=== PATIENT | male | born 1955 | race Hispanic/Latino ===

== ENCOUNTER → 2017-04-02 | Outpatient (CLI) | payer BC ==
[~2017-04-02] MED LIST: GADOBENATE DIMEGLUMINE 1 ML IV ONE; IOPAMIDOL 300 MG/ML 15ML VIAL IT ONE
--- NOTE | 2017-04-02 11:28 | Diagnostic Imaging Report ---
PROCEDURE:INJECTION ARTHROGRAM SHOULDER COMPARISON:None. INDICATIONS:TORN LABRUM IN SHOULDER FINDINGS:Tray Service Worker images of the right shoulder were obtained. The right shoulder was prepped and draped in the usual sterile fashion. 1% lidocaine was infused into the subcutaneous tissues for local anesthesia. Utilizing fluoroscopic guidance, a 21 gauge needle was advanced into the right glenohumeral joint. 5 cc of Isovue 300 and perfused. Opacification of the joint space confirmed intra-articular position. A mixture of 10 cc sterile saline with 0.1 cc gadavist was infused. After completion, the needle was removed. The contrast was mobilized within the joint space with passive range of motion. A sterile dressing was applied. There were no immediate complications. The patient tolerated the procedure well. The patient was transferred in stable unchanged condition to the MR suite for further imaging. CONCLUSION: Successful fluoroscopically guided contrast infusion into the right glenohumeral joint for an MR arthrogram. Dictated by: Sebas Bowser M.D. on 04/02/2017 at 11:37 Electronically approved by: Sebas Bowser M.D. on 04/02/2017 at 11:37
--- NOTE | 2017-04-02 11:28 | Diagnostic Imaging Report ---
PROCEDURE:INJECTION ARTHROGRAM SHOULDER COMPARISON:None. INDICATIONS:TORN LABRUM IN SHOULDER FINDINGS:Plumbing Instructor images of the right shoulder were obtained. The right shoulder was prepped and draped in the usual sterile fashion. 1% lidocaine was infused into the subcutaneous tissues for local anesthesia. Utilizing fluoroscopic guidance, a 21 gauge needle was advanced into the right glenohumeral joint. 5 cc of Isovue 300 and perfused. Opacification of the joint space confirmed intra-articular position. A mixture of 10 cc sterile saline with 0.1 cc gadavist was infused. After completion, the needle was removed. The contrast was mobilized within the joint space with passive range of motion. A sterile dressing was applied. There were no immediate complications. The patient tolerated the procedure well. The patient was transferred in stable unchanged condition to the MR suite for further imaging. CONCLUSION: Successful fluoroscopically guided contrast infusion into the right glenohumeral joint for an MR arthrogram. Dictated by: Sebas Bowser M.D. on 04/02/2017 at 11:37 Electronically approved by: Sebas Bowser M.D. on 04/02/2017 at 11:37
--- NOTE | 2017-04-05 08:38 | Diagnostic Imaging Report ---
TECHNIQUE: Magnetic resonance imaging of the RIGHT SHOULDER was performed after intra-articular injected contrast. COMPARISON: None available. HISTORY: Pain FINDINGS: MUSCLES AND TENDONS: Rotator Cuff: Tendons: Full-thickness tear of the supraspinatus tendon measuring approximately 2 cm in AP dimension with retraction of the deep fibers up to 3 cm and superficial fibers 1.5 cm (coronal image 11). The tear propagates posteriorly as a partial thickness articular sided tear into the infraspinatus tendon. Muscles: No focal muscle atrophy. Biceps Tendon: The long head of the biceps tendon is intact and within the intertubercular groove. GLENOHUMERAL JOINT: Glenoid Labrum: Nondetached tearing of the superior and posterior labrum. Articular Cartilage: Cartilage thinning without focal defect. AC JOINT AND ACROMION: Mild hypertrophic degenerative changes of the acromioclavicular joint. Subacromial spurring. BONE: No acute fracture. SOFT TISSUES: Otherwise, the soft tissues appear unremarkable. IMPRESSION: Full-thickness tear of the supraspinatus tendon with posterior propagation as a partial-thickness articular sided tear into the infraspinatus. Retraction as above without atrophy. Subacromial spur. Nondetached superior and posterior labral tearing. Signed by: Dr. Kei Laughlin M.D. on 04/05/2017 8:34 AM
== END ==
LOC: DX 08:30
PROVIDERS: ATTEND Specialist
DX: S43.431A Superior glenoid labrum lesion of right shoulder, initial encounter (principal)
CPT/HCPCS: 23350; 73222; 77002; Q9967

== ENCOUNTER → 2017-07-07 | Day surgery (SDC) | payer BC ==
[~2017-07-07] MED LIST changes: +ACETAMINOPHEN 1000 MG/100 ML IV ONE; +CEFAZOLIN SOD 2 GM/D5W 50ML 50 ML IV ONE; +DEXAMETHASONE SOD PHOS INJ 4 MG/ML VIAL ONE; +EPHEDRINE SULFATE INJ 50 MG/10 ML SYR ONE; +FENTANYL CITRATE/PF 100MCG/2 ML INJ ONE; -GADOBENATE DIMEGLUMINE 1 ML IV ONE; -IOPAMIDOL 300 MG/ML 15ML VIAL IT ONE; +KETOROLAC TROMETHAMINE 30 MG/ML VIAL ONE; +LIDOCAINE 2%/ EPINEPHRINE 20ML MDV ONE; +LIDOCAINE HCL 2% LOCAL INJ 5 ML SDV VIAL INJ ONE; +MIDAZOLAM HCL 2 MG/2 ML VIAL ONE; +ONDANSETRON HCL INJ 2 MG/ML VIAL ONE; +PROPOFOL IV EMULSION 10 MG/ML 20 ML VIAL ONE; +ROCURONIUM BROMIDE 10 MG/ML 5ML VIAL ONE; +ROPIVACAINE 0.5% 5 MG/ML 30 ML SDV ONE; +SEVOFLURANE INHAL SOLN 250 ML PEN BTL ONE
--- OUTSIDE RECORDS SUMMARY | 2017-07-07 07:45 | XMS REPORT ---
Author Author [facility] Address Unknown Phone Unavailable Care Team Providers Care Wet Room Worker Name Role Phone NEHEMIAS ZHANG Unavailable Unavailable Problems This patient has no known problems. Allergies, Adverse Reactions, Alerts This patient has no known allergies or adverse reactions. Medications This patient has no known medications. Results Test Description Test Time Test Comments Text Results Atomic Results Result Comments FLURO GUIDE NEEDLE PLMT/LOC DE [place] [address] Patient Name: GURVINDER HUIZAR MR #: [id number] : 1955 Age/Sex: 61/M Req #: [id number] Adm Physician: Ordered by: NEHEMIAS ZHANG MD Report #: [id number] Location: DX Room/Bed: Procedure: [id number] DX/FLURO GUIDE NEEDLE PLMT/LOC DE Exam Date: Exam Time: REPORT STATUS: Signed PROCEDURE: INJECTION ARTHROGRAM SHOULDER COMPARISON: None. INDICATIONS: TORN LABRUM IN SHOULDER FINDINGS: Monitoring Specialist images of the right shoulder were obtained. The right shoulder was prepped and draped in the usual sterile fashion. 1% lidocaine was infused into the subcutaneous tissues for local anesthesia. Utilizing fluoroscopic guidance, a 21 gauge needle was advanced into the right glenohumeral joint. 5 cc of Isovue 300 and perfused. Opacification of the joint space confirmed intra-articular position. A mixture of 10 cc sterile saline with 0.1 cc gadavist was infused. After completion, the needle was removed. The contrast was mobilized within the joint space with passive range of motion. A sterile dressing was applied. There were no immediate complications. The patient tolerated the procedure well. The patient was transferred in stable unchanged condition to the MR suite for further imaging. CONCLUSION: Successful fluoroscopically guided contrast infusion into the right glenohumeral joint for an MR arthrogram. Dictated by: Lakhwinder García M.D. on 04/02/2017 at 11: 37 Electronically approved by: Lakhwinder García M.D. on 04/02/2017 at 11:37 Dictated By: LAKHWINDER GARCÍA MD [id number] Transcribed By: RONAL on 04/02/17 113 COPY TO : NEHEMIAS ZHANG MD INJECTION ARTHROGRAM SHOULDER [place] [address] Patient Name: GURVINDER HUIZAR MR #: [id number] : 1955 Age/Sex: 61/M Req #: [id number] Adm Physician: Ordered by: NEHEMIAS ZHANG MD Report #: [id number] Location: DX Room/Bed: Procedure: [id number] IR/INJECTION ARTHROGRAM SHOULDER Exam Date: 04/02/17 Exam Time: 0900 REPORT STATUS: Signed PROCEDURE : INJECTION ARTHROGRAM SHOULDER COMPARISON: None. INDICATIONS: TORN LABRUM IN SHOULDER FINDINGS: Monitoring Specialist images of the right shoulder were obtained. The right shoulder was prepped and draped in the usual sterile fashion. 1% lidocaine was infused into the subcutaneous tissues for local anesthesia. Utilizing fluoroscopic guidance, a 21 gauge needle was advanced into the right glenohumeral joint. 5 cc of Isovue 300 and perfused. Opacification of the joint space confirmed intra-articular position. A mixture of 10 cc sterile saline with 0.1 cc gadavist was infused. After completion, the needle was removed. The contrast was mobilized within the joint space with passive range of motion. A sterile dressing was applied. There were no immediate complications. The patient tolerated the procedure well. The patient was transferred in stable unchanged condition to the MR suite for further imaging. CONCLUSION: Successful fluoroscopically guided contrast infusion into the right glenohumeral joint for an MR arthrogram. Dictated by: Lakhwinder García M.D. on 04/02/2017 at 11: 37 Electronically approved by: Lakhwinder García M.D. on 04/02/2017 at 11:37 Dictated By: LAKHWINDER GARCÍA MD Transcribed By: RONAL on 04/02/171136 COPY TO : NEHEMIAS ZHANG MD MRI SHOULDER RIGHT W [place] [address] Patient Name: GURVINDER HUIZAR MR #: [id number] : 1955 Age/Sex: 61/M Req # : [id number] [facility] Physician: Ordered by: NEHEMIAS ZHANG MD Report #: [id number] Location: DX Room/Bed: Procedure: [id number] MRI/MRI SHOULDER RIGHT W Exam Date: Exam Time : REPORT STATUS: Signed TECHNIQUE: Magnetic resonance imaging of the RIGHT SHOULDER was performed after intra-articular injected contrast. COMPARISON: None available. HISTORY: Pain FINDINGS: MUSCLES AND TENDONS: Rotator Cuff: Tendons: Full-thickness tear of the supraspinatus tendon measuring approximately 2 cm in AP dimension with retraction of the deep fibers up to 3 cm and superficial fibers 1.5 cm ( coronal image 11). The tear propagates posteriorly as a partial thickness articular sided tear into the infraspinatus tendon. Muscles: No focal muscle atrophy. Biceps Tendon: The long head of the biceps tendon is intact and within the intertubercular groove. GLENOHUMERAL JOINT: Glenoid Labrum: Nondetached tearing of the superior and posterior labrum. Articular Cartilage: Cartilage thinning without focal defect. AC JOINT AND ACROMION: Mild hypertrophic degenerative changes of the acromioclavicular joint. Subacromial spurring. BONE: No acute fracture. SOFT TISSUES: Otherwise, the soft tissues appear unremarkable. IMPRESSION: Full-thickness tear of the supraspinatus tendon with posterior propagation as a partial-thickness articular sided tear into the infraspinatus. Retraction as above without atrophy. Subacromial spur. Nondetached superior and posterior labral tearing. Signed by: Dr. Juan M Chan M.D. on 04/05/2017 8:34 AM Dictated By: JUAN M CHAN MD 3 Transcribed By: MAX on 04/05/17833 COPY TO: NEHEMIAS ZHANG MD
--- NOTE | 2017-07-08 06:15 | Operative Report ---
DATE OF PROCEDURE: July 07, 2017 PREOPERATIVE DIAGNOSES 1. Right shoulder rotator cuff tear. 2. Right shoulder labral tear. 3. Right shoulder acromioclavicular joint arthritis. POSTOPERATIVE DIAGNOSES 1. Right shoulder rotator cuff tear. 2. Right shoulder synovitis. 3. Right shoulder labral tear. 4. Right shoulder acromioclavicular joint arthritis. OPERATIONS/PROCEDURES PERFORMED 1. The patient underwent a right shoulder examination under anesthesia. 2. Right shoulder arthroscopy. 3. Right shoulder arthroscopic debridement of synovitis. 4. Right shoulder arthroscopic biceps tenodesis. 5. Right shoulder arthroscopic rotator cuff reconstruction. 6. Right shoulder arthroscopic subacromial decompression and acromioplasty. 7. Right shoulder arthroscopic distal clavicle resection. CABLE STRETCHER AND TESTER: Bronwyn Gan PA-C. ANESTHESIA: General endotracheal intubation anesthesia, as well as a regional block. IV FLUIDS: Per the anesthesia record. COMPLICATIONS: None. BRIEF DESCRIPTION OF THE PATIENT'S OPERATIVE PROCEDURE: Mr. Bowser was taken to the operating room and placed in the supine position on the operating room table. Following induction of general anesthesia, the patient's chair was converted to a beach chair type position. Examination of the right shoulder demonstrated full passive range of motion of the shoulder joint. There was no evidence of instability. Standard posterolateral and anterior portals were created without difficulty. The scope was placed within the shoulder joint atraumatically. Examination of the glenohumeral articulation demonstrated no significant evidence of chondromalacia. There was, however, evidence of diffuse synovitis in the shoulder joint. There were no loose bodies in the shoulder. A probe was placed in the shoulder, and the patient was found to have an anterior labral injury. There was also evidence of a partial biceps tendon injury. The patient additionally had a large full-thickness rotator cuff tear. A shaver was placed in the shoulder joint and synovitis was debrided. The biceps tendon was also debrided at this time. The insertion site for the rotator cuff was also debrided to a bleeding bony bed. The articular surface of the rotator interval was debrided. FiberWire suture was shuttled through the rotator interval capturing the biceps tendon. The biceps tendon was then released from its attachment to the glenoid. The position was checked arthroscopically and found to be appropriate. The shoulder was then deflated of its sterile normal saline. The scope was then placed in the subacromial space. Examination of the subacromial space demonstrated significant bursal inflammation. The patient also had a markedly downward sloping acromion both laterally and anteriorly. The shaver was used to resect the bursa. Care was taken to protect the biceps tenodesis sutures at this time. The shaver was then used to further debride the rotator cuff insertion site. Two double loaded suture anchors were then inserted into the greater tuberosity of the humerus, and the suture arms from those anchors were then woven through the rotator cuff tissue. The rotator cuff tissue was then advanced into its normal insertion site and tied firmly. This resulted in complete reapproximation of the patient's rotator cuff injury. The shaver was then placed in the shoulder and an acromioplasty was performed. The shoulder was placed through a range of motion and found to not impinge on the overlying acromion. The shaver was then transferred to the anterior portal. The acromioclavicular joint was isolated. A 1-cm section of the acromion was resected using a shaver. The scope was then placed in the anterior portal and this confirmed appropriate and complete resection of the distal clavicle. The shoulder was then deflated of its sterile normal saline. All portal sites were closed. Sterile dressings were applied. The patient was provided a shoulder immobilizer, awakened and taken to the postanesthesia care unit in stable condition. Bronwyn Gan acted as assistant printer floor covering for this case, and was necessary for both prepping and draping the patient, as well as positioning the arm and the passage of sutures that allowed this case to be successful. Job#: [id number] [place]
== END | disposition home or self-care (01) ==
LOC: OR 07:43
PROVIDERS: ATTEND Specialist
DX: S46.011A Strain of muscle(s) and tendon(s) of the rotator cuff of right shoulder, initial encounter (principal); M19.011 Primary osteoarthritis, right shoulder; M65.811 Other synovitis and tenosynovitis, right shoulder; S43.491A Other sprain of right shoulder joint, initial encounter
CPT/HCPCS: 29826; 29827; 29828; 93005; J1100; J1885; J2001 ×2; J2250; J2405; J2795